=== PATIENT | female | born 1970 | race Caucasian/White ===

== ENCOUNTER 2018-06-23 11:23 | Emergency (ER) | payer OTHER ==
[2018-06-23 11:39] VITALS: TEMP 98; BMI 36.3
[2018-06-23] MEDS ORDERED: SODIUM CHLORIDE 0.9% 500 ML INFUS.BAG IV ONE (12:33)
[2018-06-23] MEDS ORDERED: ACETAMINOPHEN 1000 MG/100 ML VIAL (NON FORMULARY) IVPB ONE (12:33)
--- NOTE | 2018-06-23 12:35 | PDOC ---
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 The pain is along the right side of the face, radiates to the neck, and is occasionally associated with rhinorrea and tearing. She has also been experiencing subjective fevers for the past 3 days. 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 The headache was not worst at onset and is not the worst headache of her life. Denies any chest pain, SOB, difficulty breathing, abdominal pain, back pain, dysuria, frequency, urgency, weakness, numbenss, tingling, blurry vision, or chills. PCP: Ton Guallpa Allergies: NKA, NKDA Psh: APpendectomy Social Hx: Denies smoking, drinking, illicit drug usage Past History - Past Medical History Allergies/Adverse Reactions: Allergies Allergy/AdvReac Type Severity Reaction Status Date / Time No Known Drug Allergies Allergy Verified 06/23/18 11:34 Home Medications: Ambulatory Orders Omeprazole [Prilosec (RX)] 40 mg PO DAILY 09/13/15 Amoxicillin/Potassium Clav [Augmentin 875-125 Tablet] 1 each PO BID #14 tablet 06/23/18 Ibuprofen [Motrin -] 600 mg PO TID PRN 06/23/18 Anemia: No Asthma: No Cancer: No Cardiac Disorders: No CVA: No COPD: No CHF: No Dementia: No Diabetes: No GI Disorders: Yes (GASTRITIS) Disorders: No HTN: No Hypercholesterolemia: No Liver Disease: No Seizures: No Thyroid Disease: No - Surgical History Appendectomy: Yes Neurologic Surgery: Yes (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) - Suicide/Smoking/Psychosocial Hx Smoking History: Never smoked Have you smoked in the past 12 months: No Hx Alcohol Use: No Drug/Substance Use Hx: No Substance Use Type: None Hx Substance Use Treatment: No Review of Systems - Review of Systems Comments:: CONSTITUTIONAL: Present: Fever Absent: no chills, no fatigue EYES: Absent: visual changes ENT: Absent: ear pain, no sore throat CARDIOVASCULAR: Absent: chest pain, no palpitations RESPIRATORY: Absent: cough, no SOB GI: Absent: abdominal pain, no nausea, no vomiting, no constipation, no diarrhea GENITOURINARY: Absent: dysuria, no frequency, no hematuria MUSKULOSKELETAL: Absent: back pain, no arthralgia, no myalgia SKIN: Absent: rash NEURO: Present: headache *Physical Exam - Vital Signs Last Vital Signs Temp Pulse Resp BP Pulse Ox 98 F 79 18 130/80 98 06/23/18 11:38 06/23/18 11:38 06/23/18 11:38 06/23/18 11:38 06/23/18 11:38 - Physical Exam Comments: Blood pressure: 154/105 GENERAL: Well developed, well nourished. Awake and alert. Minimal distress. HEENT: Normocephalic, atraumatic. PERRLA, EOMI. No conjunctival pallor. Sclera are non- icteric. Moist mucous membranes. Oropharynx is clear. NECK: Supple. Full ROM. No JVD. No lymphadenopathy. CARDIOVASCULAR: Normal S1, S2. Regular rate and rhythm. PULMONARY: Clear to auscultation bilaterally. ABDOMEN: Soft, non-distended, non-tender. EXTREMITIES: Normal ROM in all four extremities. No gross deformities. SKIN: Warm, dry. No rash NEUROLOGICAL: No focal neurological deficits. 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 DD includes but not limited to: Migraine, cluster, tension headaches, ICH, SAH, CVA/stroke, meningitis, tumor recurrence. Plan: Cbc, Cmp, IV hydration, Acetaminophen, Head CT, facial rebreather 100% O2 , re-assess. Labs unremarkable. Head CT showed Acute on chronic sinusitis. Giving the patient augmentin 875-125 for the next week and DCing with Pcp FU. *DC/Admit/Observation/Transfer Diagnosis at time of Disposition: Sinusitis - Discharge Dispostion Disposition: HOME Condition at time of disposition: Stable Decision to Admit order: No - Prescriptions Prescriptions: Amoxicillin/Potassium Clav [Augmentin 875-125 Tablet] 1 each PO BID #14 tablet - Referrals Referrals: Ton Guallpa [Primary Care Provider] - - Patient Instructions Printed Discharge Instructions: Sinusitis (Alternative Therapy), DI for Sinusitis Additional Instructions: You came into the ER with Right sided head pain. We did a cat scan which showed you have Acute sinusitis - Please see attached handout for further explanation. We sent an Antibiotic to your [place] pharmacy. Please make sure to go and pick it up. Take Augmentin twice a day for the next week. Eat yogurt with every dose to make your stomach feel better. Please come back to the emergency room if your pain worsens, you develop a high fever, becoe nauseous, start vomiting, or have any other new or worsening concerns. Thank you for coming to the [facility] ER. We hope you feel better soon! Print Language: RUSSIAN - Post Discharge Activity
[2018-06-23] MEDS ORDERED: ACETAMINOPHEN INJECTION 100 ML IVPB ONE (12:57)
[2018-06-23 13:00] LABS: BASO % 1.2 % (0-2.0); EOS % 8.4 % (0-4.5); HEMATOCRIT 44.1 % (32.4-45.2); HEMOGLOBIN 14.6 GM/dL (10.7-15.3); LYMPH % 50.1 % (8-40); MCH 29.1 pg (25.7-33.7); MEAN CELL VOLUME 88.1 fl (80-96); MEAN PLT VOLUME 8.2 fl (7.5-11.1); MONO % 9.2 % (3.8-10.2); NEUT % 31.1 % (42.8-82.8); PLATELET COUNT 350 K/MM3 (134-434); RDW 12.9 % (11.6-15.6); WHITE BLOOD COUNT 6.4 K/mm3 (4.0-10.0)
--- NOTE | 2018-06-23 13:30 | PDOC ---
Attending Attestation - Resident Resident Name: Domingo Tamayo - ED Attending Attestation I have performed the following: I have examined & evaluated the patient, The case was reviewed & discussed with the resident, I agree w/resident's findings & plan, Exceptions are as noted - HPI HPI: 48 yo F with prior R ocular surgery presents with R-sided headache. Associated with congestion, sinus pressure. Wakes her up at night and in the morning. No vision changes. No fever. - Physicial Exam PE: GENERAL: Awake, alert, and fully oriented, in no acute distress HEAD: No signs of trauma. +R maxillary sinus tenderness. EYES: PERRLA, EOMI, sclera anicteric, conjunctiva clear ENT: Auricles normal inspection, hearing grossly normal, oropharynx clear without exudates. Moist mucosa. Nose +purulent drainage. NECK: Normal ROM, supple, no lymphadenopathy, JVD, or masses LUNGS: Breath sounds equal, clear to auscultation bilaterally. No wheezes, and no crackles HEART: Regular rate and rhythm, normal S1 and S2, no murmurs, rubs or gallops ABDOMEN: Soft, nontender, normoactive bowel sounds. No guarding, no rebound. No masses EXTREMITIES: Normal range of motion, no edema. No clubbing or cyanosis. No cords, erythema, or tenderness NEUROLOGICAL: Cranial nerves II through XII grossly intact. Normal speech, normal gait SKIN: Warm, Dry, normal turgor, no rashes or lesions noted. - Medical Decision Making [facility] with acute R sinusitis, no recurrence of prior mass behind the R eye. Will treat with augmentin. Stable for DC home.
[2018-06-23 13:34] LABS: ALK PHOS 161 U/L (45-117); ANION GAP 4 MMOL/L (8-16); BILIRUBIN,TOTAL 0.2 mg/dL (0.2-1); BLOOD UREA NITROGEN 12 mg/dL (7-18); CALCIUM 9.4 mg/dL (8.5-10.1); CHLORIDE 104 mmol/L (98-107); CO2 31 mmol/L (21-32); CREATININE 0.7 mg/dL (0.55-1.3); GLUCOSE,RANDOM 73 mg/dL (74-106); POTASSIUM 4.6 mmol/L (3.5-5.1); SGOT/AST 20 U/L (15-37); SGPT/ALT 36 U/L (13-61); SODIUM 139 mmol/L (136-145)
[2018-06-23] MEDS ORDERED: IBUPROFEN 600 MG TABLET (FP) PO ONE ×2 (14:34→14:48)
[2018-06-23 14:56] VITALS: BP 160/80; PULSE 80
== END 2018-06-23 14:55 | disposition home or self-care (01) ==
LOC: JER 11:23
PROC: 3E0337Z Introduction of Electrolytic and Water Balance Substance into Peripheral Vein, Percutaneous Approach (ICD-10-PCS; principal; 2018-06-23)
PROC: 3E033NZ Introduction of Analgesics, Hypnotics, Sedatives into Peripheral Vein, Percutaneous Approach (ICD-10-PCS; 2018-06-23)
DX: J32.9 Chronic sinusitis, unspecified (principal)
CPT/HCPCS: 36415; 70450-TC; 80053; 85025; 99283-25; J0131

== ENCOUNTER 2019-07-12 03:35 | Emergency (ER) | payer OTHER ==
[2019-07-12 03:51] VITALS: BP 156/85; PULSE 69; TEMP 98.2; BMI 41.5
--- NOTE | 2019-07-12 03:53 | PDOC ---
Attending Attestation - Resident Resident Name: JustenJasper - ED Attending Attestation I have performed the following: I have examined & evaluated the patient, The case was reviewed & discussed with the resident, I agree w/resident's findings & plan - HPI HPI: 07/12/19 20:12 see resident hpi - Physicial Exam PE: 07/12/19 20:12 agree with resident exam - Medical Decision Making 07/12/19 20:12 49-year-old female with left upper back left chest and left shoulder pain reproducible with palpation and certain movements Due to patient's age she will be held for 2 sets of troponins, first set is negative, second set signed out to dayshift with likely DC pending results
[2019-07-12] MEDS ORDERED: IBUPROFEN 400 MG TABLET (FP) PO ONE ×2 (03:56→04:03)
--- NOTE | 2019-07-12 04:11 | PDOC ---
History of Present Illness - General Chief Complaint: Chest Pain Stated Complaint: LEFT SHOULDER/CHEST PAIN Time Seen by Provider: 07/12/19 03:50 - History of Present Illness Initial Comments: 07/12/19 04:44 49f with no pmh presents to the Ed with left sided chest pain and shoulder pain since earlier today while she was in her kitchen. Didn't try taking any medication for the pain. The pain is reproducible by palpation and movement. No sob. Never had this before. No trauma. Past History - Past Medical History Allergies/Adverse Reactions: Allergies Allergy/AdvReac Type Severity Reaction Status Date / Time No Known Drug Allergies Allergy Verified 07/12/19 03:52 Home Medications: Ambulatory Orders Ibuprofen [Motrin -] 600 mg PO TID PRN 06/23/18 Pantoprazole Sodium [Protonix -] 20 mg PO DAILY 07/12/19 Anemia: No Asthma: No Cancer: No Cardiac Disorders: No CVA: No COPD: No CHF: No Dementia: No Diabetes: No GI Disorders: Yes (GASTRITIS) Disorders: No HTN: No Hypercholesterolemia: No Liver Disease: No Seizures: No Thyroid Disease: No - Surgical History Appendectomy: Yes Neurologic Surgery: Yes (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) - Psycho Social/Smoking Cessation Hx Smoking History: Never smoked Have you smoked in the past 12 months: No Hx Alcohol Use: No Drug/Substance Use Hx: No Substance Use Type: None Hx Substance Use Treatment: No Cardiac Specific PMH - Complaint Specific PMHX Pacemaker: No Review of Systems - Review of Systems Able to Perform ROS?: Yes Is the patient limited Salvadorean proficient: No Constitutional: No: Symptoms Reported HEENTM: No: Symptoms Reported Respiratory: No: Symptoms reported Cardiac (ROS): Yes: See HPI ABD/GI: No: Symptoms Reported : No: Symptoms Reported Musculoskeletal: No: Symptoms Reported Integumentary: No: Symptoms Reported Neurological: No: Symptoms reported All Other Systems: Reviewed and Negative *Physical Exam - Vital Signs Last Vital Signs Temp Pulse Resp BP Pulse Ox 98.2 F 69 18 156/85 97 07/12/19 03:45 07/12/19 03:45 07/12/19 03:45 07/12/19 03:45 07/12/19 03:45 - Physical Exam General Appearance: Yes: Nourished, Appropriately Dressed. No: Apparent Distress HEENT: positive: EOMI, HINA, Normal ENT Inspection Respiratory/Chest: positive: Lungs Clear, Normal Breath Sounds. negative: Chest Tender, Respiratory Distress Cardiovascular: positive: Regular Rhythm, Regular Rate, S1, S2 Gastrointestinal/Abdominal: positive: Normal Bowel Sounds, Flat, Soft. negative : Tender Extremity: positive: Other (Tender left shoulder, full ROM) Integumentary: positive: Normal Color, Dry, Warm Neurologic: positive: Fully Oriented, Alert, Normal Mood/Affect, Normal Response ED Treatment Course - LABORATORY CBC & Chemistry Diagram: 07/12/19 04:10 07/12/19 04:10 - ADDITIONAL ORDERS Additional order review: Laboratory Results 07/12/19 07/12/19 04:10 04:10 Sodium 142 Potassium 4.3 Chloride 109 H Carbon Dioxide 27 Anion Gap 7 L BUN 14.8 Creatinine 0.8 Est GFR (CKD-EPI)AfAm 98.93 Est GFR (CKD-EPI)NonAf 85.36 Random Glucose 111 H Calcium 9.1 Total Bilirubin 0.2 AST 15 ALT 29 Alkaline Phosphatase 113 Troponin I < 0.02 Total Protein 6.6 Albumin 4.0 07/12/19 04:10 RBC 4.40 MCV 89.3 MCHC 33.7 RDW 13.3 MPV 8.7 Neutrophils % 39.3 L D Lymphocytes % 47.7 H Monocytes % 6.3 Eosinophils % 6.1 H Basophils % 0.6 - RADIOLOGY Radiology Studies Ordered: Category Date Time Status CHEST PA & LAT [RAD] Stat Radiology 07/12/19 04:11 Taken - Medications Given in the ED: ED Medications Discontinued Medications Generic Name Dose Route Start Last Admin Trade Name Anishq PRN Reason Stop Dose Admin Ibuprofen 800 mg 07/12/19 03:56 07/12/19 04:06 Motrin - PO 07/12/19 03:57 800 mg ONCE ONE Administration Medical Decision Making - Medical Decision Making 07/12/19 04:54 49f with chest and shoulder pain. Will r./o ACS with ekg and trop and obtain cxr of the chest. Pending labs and xray. 07/12/19 07:03 Send home after second troponin if negative. Patient signed out to Dr. Rebollar Discharge - Discharge Information Problems reviewed: Yes Clinical Impression/Diagnosis: Shoulder pain - Follow up/Referral Referrals: Landon Marie MD [Primary Care Provider] - - Patient Discharge Instructions - Post Discharge Activity
[2019-07-12 04:37] LABS: BASO % 0.6 % (0-2.0); EOS % 6.1 % (0-4.5); HEMATOCRIT 39.3 % (32.4-45.2); HEMOGLOBIN 13.3 GM/dL (10.7-15.3); LYMPH % 47.7 % (8-40); MCH 30.1 pg (25.7-33.7); MCHC 33.7 g/dl (32.0-36.0); MEAN CELL VOLUME 89.3 fl (80-96); MEAN PLT VOLUME 8.7 fl (7.5-11.1); MONO % 6.3 % (3.8-10.2); NEUT % 39.3 % (42.8-82.8); PLATELET COUNT 315 K/MM3 (134-434); RDW 13.3 % (11.6-15.6); WHITE BLOOD COUNT 7.1 K/mm3 (4.0-10.0)
[2019-07-12 05:04] LABS: BILIRUBIN,TOTAL 0.2 mg/dL (0.2-1); BLOOD UREA NITROGEN 14.8 mg/dL (7-18); CALCIUM 9.1 mg/dL (8.5-10.1); CREATININE 0.8 mg/dL (0.55-1.3); POTASSIUM 4.3 mmol/L (3.5-5.1); TOT PROT 6.6 g/dl (6.4-8.2)
--- NOTE | 2019-07-12 07:02 | PDOC ---
*Physical Exam - Vital Signs Last Vital Signs Temp Pulse Resp BP Pulse Ox 98.2 F 69 18 156/85 97 07/12/19 03:45 07/12/19 03:45 07/12/19 03:45 07/12/19 03:45 07/12/19 03:45 ED Treatment Course - LABORATORY CBC & Chemistry Diagram: 07/12/19 04:10 07/12/19 04:10 - ADDITIONAL ORDERS Additional order review: Laboratory Results 07/12/19 07/12/19 04:10 04:10 Sodium 142 Potassium 4.3 Chloride 109 H Carbon Dioxide 27 Anion Gap 7 L BUN 14.8 Creatinine 0.8 Est GFR (CKD-EPI)AfAm 98.93 Est GFR (CKD-EPI)NonAf 85.36 Random Glucose 111 H Calcium 9.1 Total Bilirubin 0.2 AST 15 ALT 29 Alkaline Phosphatase 113 Troponin I < 0.02 Total Protein 6.6 Albumin 4.0 07/12/19 04:10 RBC 4.40 MCV 89.3 MCHC 33.7 RDW 13.3 MPV 8.7 Neutrophils % 39.3 L D Lymphocytes % 47.7 H Monocytes % 6.3 Eosinophils % 6.1 H Basophils % 0.6 - Medications Given in the ED: ED Medications Discontinued Medications Generic Name Dose Route Start Last Admin Trade Name Freq PRN Reason Stop Dose Admin Ibuprofen 800 mg 07/12/19 03:56 07/12/19 04:06 Motrin - PO 07/12/19 03:57 800 mg ONCE ONE Administration Medical Decision Making - Medical Decision Making 07/12/19 07:00 Sign out from night team 49f with chest and shoulder pain likely MSK (tender to palpation). Low concern for ACS (neg trop x2, no ST changes) vs PNA (no consolidation CXR). Given ibuprofen, toradol. DC home Discharge - Discharge Information Problems reviewed: Yes Clinical Impression/Diagnosis: Shoulder pain Qualifiers: Chronicity: acute Laterality: left Qualified Code(s): M25.512 - Pain in left shoulder Condition: Good Disposition: HOME - Follow up/Referral Referrals: Landon Marie MD [Primary Care Provider] - - Patient Discharge Instructions Patient Printed Discharge Instructions: DI for Chest Pain Additional Instructions: You were seen for chest pain. Your labs did not show anything concerning. You were given pain medication Please follow up with your primary care doctor. Take tylenol or aspirin if you have pain. Come back if you have worsening pain, trouble breathing, or vomiting - Post Discharge Activity
[2019-07-12] MEDS ORDERED: KETOROLAC TROMETHAMINE 30 MG/1 ML VIAL IVPUSH ONE (08:00)
[2019-07-12] MEDS ORDERED: KETOROLAC TROMETHAMINE 30 MG/1 ML VIAL ONE (08:03)
[2019-07-12] MEDS ORDERED: KETOROLAC TROMETHAMINE 15 MG/ML VIAL IVPUSH ONE (08:04)
--- NOTE | 2019-07-13 05:12 | EKG ---
Test Reason : Blood Pressure : / mmHG Vent. Rate : 063 BPM Atrial Rate : 063 BPM P-R Int : 162 ms QRS Dur : 086 ms QT Int : 390 ms P-R-T Axes : 040 007 042 degrees QTc Int : 399 ms NORMAL SINUS RHYTHM NORMAL ECG WHEN COMPARED WITH ECG OF 13-SEP-2015 09:01, NO SIGNIFICANT CHANGE WAS FOUND Confirmed by JASMIN FLORES MD ([id number]) on 07/13/2019 5:11:50 AM Referred By: Confirmed By:JASMIN FLORES MD
== END 2019-07-12 08:33 | disposition home or self-care (01) ==
LOC: JER 03:35
PROC: 3E0333Z Introduction of Anti-inflammatory into Peripheral Vein, Percutaneous Approach (ICD-10-PCS; principal; 2019-07-12)
DX: M25.512 Pain in left shoulder (principal)
CPT/HCPCS: 36415; 71046-TC-FY; 80053; 84484; 85025; 93005; 93010; 99283-25

== ENCOUNTER 2020-08-22 16:41 | Emergency (ER) | payer OTHER ==
[2020-08-22 17:20] VITALS: TEMP 97.6; BMI 36.7
[2020-08-22] MEDS ORDERED: LACTATED RINGERS SOLUTION 1000 ML INFUS.BAG IV ONE (18:22)
[2020-08-22] MEDS ORDERED: ACETAMINOPHEN 1000 MG/100 ML VIAL (NON FORMULARY) IVPB ONE (18:41)
[2020-08-22 18:50] LABS: EOS % 4.4 % (0-4.5); HEMATOCRIT 39.6 % (32.4-45.2); HEMOGLOBIN 13.4 GM/dL (10.7-15.3); MCH 30.2 pg (25.7-33.7); MCHC 33.9 g/dl (32.0-36.0); MEAN CELL VOLUME 89.2 fl (80-96); MEAN PLT VOLUME 8.5 fl (7.5-11.1); MONO % 6.8 % (3.8-10.2); NEUT % 43.8 % (42.8-82.8); PLATELET COUNT 348 K/MM3 (134-434); RBC 4.44 M/mm3 (3.60-5.2); RDW 12.8 % (11.6-15.6); WHITE BLOOD COUNT 8.6 K/mm3 (4.0-10.0)
[2020-08-22 19:09] LABS: CHLORIDE 106 mmol/L (98-107); POTASSIUM 4.8 mmol/L (3.5-5.1); SODIUM 140 mmol/L (136-145)
[2020-08-22 19:10] LABS: ALBUMIN 3.9 g/dl (3.4-5.0); ANION GAP 5 MMOL/L (8-16); CALCIUM 9.3 mg/dL (8.5-10.1); CO2 29 mmol/L (21-32); GLUCOSE,RANDOM 109 mg/dL (74-106)
[2020-08-22 19:11] LABS: BLOOD UREA NITROGEN 13.5 mg/dL (7-18); MAGNESIUM 2.2 mg/dL (1.8-2.4)
[2020-08-22 19:14] LABS: CREATININE 0.8 mg/dL (0.55-1.3); SGOT/AST 27 U/L (15-37); SGPT/ALT 39 U/L (13-61)
[2020-08-22 19:15] LABS: BILIRUBIN,TOTAL 0.2 mg/dL (0.2-1); TOT PROT 7.4 g/dl (6.4-8.2)
[2020-08-22 19:16] LABS: ALK PHOS 111 U/L (45-117)
[2020-08-22 20:37] VITALS: BP 132/86; PULSE 90
[2020-08-22 20:54] LABS: LIPASE 180 U/L (73-393)
[2020-08-22] MEDS ORDERED: KETOROLAC TROMETHAMINE 15 MG/ML VIAL IVPUSH ONE (23:05)
[2020-08-22] MEDS ORDERED: KETOROLAC TROMETHAMINE 15 MG/ML VIAL ONE (23:10)
== END 2020-08-22 23:39 | disposition home or self-care (01) ==
LOC: JER 16:41
PROC: 3E0333Z Introduction of Anti-inflammatory into Peripheral Vein, Percutaneous Approach (ICD-10-PCS; principal; 2020-08-22)
PROC: 3E0333Z Introduction of Anti-inflammatory into Peripheral Vein, Percutaneous Approach (ICD-10-PCS; 2020-08-22)
DX: R07.9 Chest pain, unspecified (principal)
CPT/HCPCS: 36415; 71045-TC-FY; 80053; 82550; 83690; 83735; 84484; 85025; 93005; 93010; 99285-25; J0131